=== PATIENT | female | born 1985 | race Caucasian/White ===

== ENCOUNTER 2025-03-12 11:45 | Emergency (ER) | payer OTHER, SELFPAY ==
--- NOTE | ~2025-03-12 | XR_ITS ---
Examination: XR chest 1V portable Clinical History: Shortness of breath Comparison: None Technique: Portable AP Findings: Heart size normal. Lungs clear. No acute bony abnormality. IMPRESSION: 1. No acute cardiopulmonary findings given portable technique. Reviewed, dictated and finalized at location [facility]
[2025-03-12 11:45] VITALS: BP 112/76; PULSE 108; PULSE 109; RESP 20; TEMP 37.2; O2SAT 99
--- NOTE | 2025-03-12 11:52 | ECG_ITS ---
Test Date: 2025-03-12 11:58:46 Measurements Intervals [place] Rate: 102 P: 82 WV: 111 QRS: 66 QRSD: 86 T: 75 QT: 351 QTc: 458 Interpretive Statements SINUS TACHYCARDIA WITH SHORT WV INTERVAL BORDERLINE T WAVE ABNORMALITY- HIGH LATERAL LEADS BASELINE ARTIFACT- I, II, AVR, AVL, AVF BORDERLINE ECG No previous ECG available for comparison Electronically Signed On 03-12-2025 12:08:44 LOCAL COMBINATION TRUCK DRIVER by Rich Gomez D.O.
[2025-03-12 12:00] VITALS: BP 105/76; PULSE 108; RESP 18; O2SAT 99
[2025-03-12] MEDS: SODIUM CHLORIDE 0.9% IV 1,000 ML 999 ML IV CONT (12:10)
[2025-03-12 12:15] VITALS: BP 107/77; PULSE 99; RESP 17; O2SAT 99
[2025-03-12 12:30] VITALS: BP 116/73; PULSE 99; RESP 16; O2SAT 99
[2025-03-12 12:36] LABS: Hematocrit 32.3 % (35.0-49.0); Hemoglobin 9.7 g/dL (12.0-15.0); Immature Granulocyte Percent A 0.5 % (0.0-0.0); Lymphocytes Absolute Auto 2.18 K/mm3 (1.10-4.50); Mean Corpuscular HGB Conc 30.0 g/dL (32-36); Mean Corpuscular Hemoglobin 21.1 pg (27.0-31.0); Mean Corpuscular Volume 70.4 fL (78.0-102.0); Nucleated Red Blood Cells Absolute Auto 0.00 K/mm3 (0.00-0.00); Nucleated Red Blood Cells Perc 0.0 % (0-0.0); Platelet Count Result 383 K/mm3 (150-420); Red Blood Count 4.59 M/mm3 (4.20-5.40); White Blood Count 11.3 K/mm3 (4.8-10.8)
[2025-03-12 12:45] VITALS: BP 110/71; PULSE 94; PULSE 95; RESP 16; O2SAT 100
[2025-03-12 12:48] LABS: Alanine Aminotransferase 16 U/L (6-35); Albumin Level 4.2 g/dL (3.5-5.1); Alkaline Phosphatase 90 U/L (38-126); Anion Gap 10 mmol/L (4-12); Aspartate Amino Transferase 26 U/L (14-36); Bilirubin,Total 0.6 mg/dL (0.2-1.3); Blood Urea Nitrogen 16 mg/dL (7-17); Calcium 8.8 mg/dL (8.4-10.2); Carbon Dioxide 20 mmol/L (22-30); Chloride 104 mmol/L (98-107); Estimated CRCL calculation 102 ml/min; Estimated Glomerular Filt Rate > 60; Glucose 249 mg/dL (65-110); Magnesium 1.7 mg/dL (1.6-2.3); Osmolality Calculated 287 mOsm/kg (285-295); Potassium 3.7 mmol/L (3.4-5.0); Sodium 134 mmol/L (137-145); Total Protein 7.3 g/dL (6.3-8.2)
[2025-03-12 12:51] LABS: INR 1.0; Partial Thromboplastin Time 24.1 Sec (23.9-30.70); Prothrombin Time 10.8 Seconds (9.50-12.1)
[2025-03-12 12:59] LABS: NT Pro B Type Natriuretic Pept < 20 pg/mL (19.9-100); Troponin I < 0.012 ng/mL (0.000-0.034)
[2025-03-12] MEDS: KETOROLAC 30 MG/ML VIAL (*BKC) IV PUSH (13:11)
[2025-03-12 13:13] LABS: Influenza A QL RT-PCR Negative (Negative); Influenza B QL RT-PCR Negative (Negative); RSV RNA, RT-PCR Negative (Negative); SARS-CoV-2 RNA PCR Positive (Negative)
[2025-03-12 13:15] VITALS: BP 119/77; PULSE 90; RESP 18; TEMP 36.6; O2SAT 99
--- NOTE | 2025-03-12 13:19 | ED_ITS ---
HPI - SOB/Dyspnea General Chief Complaint: Shortness of Breath/Dyspnea Stated Complaint: shortness of breath Time Seen by Provider: 03/12/25 11:51 Source: patient Mode of arrival: ambulatory Limitations: no limitations History of Present Illness HPI Narrative: This is a 40-year-old female with history of CAD presents with shortness of breath cough and congestion with no fevers no nausea vomiting no chest pain no abdominal pain no dysuria no diarrhea constipation. Patient had symptoms for the last couple of days where she has cough congestion and some mild shortness of breath with no audible wheezing. MD elicited complaint: shortness of breath and cough Onset (ago): day(s) Timing: constant Severity: mild Exacerbating factors: nothing Relieving factors: nothing Related Data Allergies Allergy/AdvReac Type Severity Reaction Status Date / Time No Known Allergies Allergy Verified 03/12/25 11:57 Review of Systems 2 Review of Systems: All systems reviewed & are unremarkable except as noted in HPI and below PMFSH Past Medical History Medical History CAD (coronary artery disease) Exam 2 Const: General: healthy appearing Nutritional Appearance: well nourished Orientation/consciousness: patient oriented x3 Limitations: no limitations HENMT: Head: normal to inspection Neck: Neck: normal visual inspection, no lymphadenopathy and no meningeal signs Chest: Chest palpation & inspection: normal inspection of the chest Resp: Effort & Inspection: normal respiratory effort Auscultation: clear to auscultation bilaterally Cardio: Rate: regular rate Rhythm: regular rhythm GI: GI Palp: Yes Soft to palpation Auscultation: normal bowel sounds Skin: General skin exam: normal color Rashes: no rashes Wounds: no wounds Neuro: General: patient oriented x3, moves all extremities and no meningeal signs Extrem: General: no pedal edema Course Course Emergency Course: Medical decision making narrative: The patient was evaluated by myself in the emergency department. History obtained from the patient who is an independent historian physical exam performed and witnessed by nurse. External medical records were reviewed at this time. EKG shows normal sinus rhythm with no ST or T changes x-ray with no acute cardiopulmonary abnormality blood work troponins and D-dimer were negative the patient was positive for COVID. Patient did receive 30mg IV Toradol and after reassessment pain level had improved she is complaining of some shoulder discomfort. Patient received IV fluids. Repeat assessment: Patient doing well on repeat exam with no acute distress Symptoms have improved since arrival to the emergency department Repeat vitals are stable Patient agrees with discussion after shared medical decision-making and agrees with discharge All questions answered to the patient's satisfaction Follow-up in 3 to 5 days with primary care physician. Vital Signs Vital signs: Vital Signs Temperature 37.2 C 03/12/25 11:45 Pulse Rate 108 H 03/12/25 11:45 Respiratory Rate 20 03/12/25 11:45 Blood Pressure 112/76 03/12/25 11:45 Pulse Oximetry 99 03/12/25 11:45 Oxygen Delivery Room Air 03/12/25 11:45 Temperature 37.2 C 03/12/25 11:45 Pulse Rate 94 03/12/25 12:45 Respiratory Rate 16 03/12/25 12:45 Blood Pressure 110/71 03/12/25 12:45 Pulse Oximetry 100 03/12/25 12:45 Oxygen Delivery Room Air 03/12/25 12:45 MDM Differential Diagnosis Differential Diagnosis: COVID Lab Data 03/12/25 12:29 03/12/25 12:29 Labs: Lab Results 03/12/25 03/12/25 Range/Units 12:29 12:30 WBC 11.3 H (4.8-10.8) K/mm3 RBC 4.59 (4.20-5.40) M/mm3 Hgb 9.7 L (12.0-15.0) g/dL Hct 32.3 L (35.0-49.0) % MCV 70.4 L (78.0-102.0) fL MCH 21.1 L (27.0-31.0) pg MCHC 30.0 L (32-36) g/dL RDW 16.7 H (11.6-14.4) % Plt Count 383 (150-420) K/mm3 MPV 10.6 (9.2-11.8) fl Immature Gran % (Auto) 0.5 H (0.0-0.0) % Neut % (Auto) 71.9 H (50.0-70.0) % Lymph % (Auto) 19.3 (18.0-42.0) % [place] % (Auto) 6.1 (2.0-11.0) % Eos % (Auto) 1.4 (1.0-6.0) % Baso % (Auto) 0.8 (0.0-1.0) % Lymph # (Auto) 2.18 (1.10-4.50) K/mm3 Tw[place]gs # (Auto) 0.69 (0.10-0.90) K/mm3 Eos # (Auto) 0.16 (0.02-0.50) K/mm3 Baso # (Auto) 0.09 (0.00-0.10) K/mm3 Abs Immat Gran (auto) 0.06 H (0.00-0.00) K/mm3 Absolute Neuts (auto) 8.11 H (1.70-7.20) K/mm3 Absolute Nucleated RBC 0.00 (0.00-0.00) K/mm3 Nucleated RBC % 0.0 (0-0.0) % PT 10.8 (9.50-12.1) Seconds INR 1.0 APTT 24.1 (23.9-30.70) Sec D-Dimer 0.28 (0.19-0.50) mg/L Sodium 134 L (137-145) mmol/L Potassium 3.7 (3.4-5.0) mmol/L Chloride 104 (98-107) mmol/L Carbon Dioxide 20 L (22-30) mmol/L Anion Gap 10 (4-12) mmol/L BUN 16 (7-17) mg/dL Creatinine 0.59 L (0.7-1.0) mg/dL Estim Creat Clear Calc 102 ml/min Estimated GFR > 60 (59 - ) Glucose 249 H (65-110) mg/dL Calculated Osmolality 287 (285-295) mOsm/kg Lactic Acid 1.0 (0.7-2.0) mmol/L Calcium 8.8 (8.4-10.2) mg/dL Magnesium 1.7 (1.6-2.3) mg/dL Total Bilirubin 0.6 (0.2-1.3) mg/dL AST 26 (14-36) U/L ALT 16 (6-35) U/L Alkaline Phosphatase 90 (38-126) U/L Troponin I < 0.012 (0.000-0.034) ng/mL NT-Pro-B Natriuret Pep < 20 (19.9-100) pg/mL Total Protein 7.3 (6.3-8.2) g/dL Albumin 4.2 (3.5-5.1) g/dL Influenza A (RT-PCR) Negative (Negative) Influenza B (RT-PCR) Negative (Negative) RSV (RT-PCR) Negative (Negative) SARS-CoV-2 RNA (RT-PCR) Positive A (Negative) Imaging Data Radiologist's impression: ITS Impressions Chest X-Ray 03/12/25 12:08 IMPRESSION: 1. No acute cardiopulmonary findings given portable technique. Critical Care Time Critical Care Time Critical Care Time: No Discharge Plan Discharge Clinical Impression: COVID Patient Disposition: Home Condition: Stable Instructions: Antibiotic Form, COVID-19 (Coronavirus Disease 2019) (ED) Additional Instructions: Advised to take medication as prescribed can use Tylenol or Motrin as needed and follow with primary in the next 3 to 5 days for further evaluation and treatment. Patient Language: [place] Prescriptions: New Paxlovid 300 mg (150 mg x 2)-100 mg tablets,dose pack See Rx Instructions .ROUTE .COMPLEX Qty: 30 0RF Rx Instructions: take TWO 150 mg tablets of nirmatrelvir with ONE 100 mg tablet of ritonavir twice daily for 5 days benzonatate 200 mg capsule 200 mg PO TID Qty: 20 0RF Follow-up/Referrals: Muriel,WARD Marvin [Primary Care Provider] Time of Disposition: 13:24
--- OUTSIDE RECORDS SUMMARY | 2025-03-12 13:53 | XMS_ITS ---
Author Organization Unknown Address [address] [place] [phone] Phone Care Team Providers Care Tax Economist Name Role Phone TORY WILEY Attending Unavailable NEWTON García Primary Unavailable Immunization Immunization Date Status Additional Notes Code Code System DTP 1983 Completed 01 CVX DTP 1983 Completed 01 CVX DTP 1983 Completed 01 CVX DTP 01/03/1985 Completed 01 CVX DTP 12/18/1988 Completed 01 CVX OPV, trivalent 1983 Completed 02 CVX OPV, trivalent 1983 Completed 02 CVX OPV, trivalent 1983 Completed 02 CVX OPV, trivalent 01/03/1985 Completed 02 CVX OPV, trivalent 12/18/1988 Completed 02 CVX MMR 05/23/1984 Completed 03 CVX MMR 12/18/1988 Completed 03 CVX Hep B, adolescent or pediatric 04/15/1999 Completed 08 CVX Hep B, adolescent or pediatric 05/13/1999 Completed 08 CVX Hep B, adolescent or pediatric 10/14/1999 Completed 08 CVX Td (adult), 2 Lf tetanus toxoid, preservative free, adsorbed 10/16/1997 Completed 09 CVX Hib, unspecified formulation 03/13/1986 Completed 17 CVX Tdap 05/26/2014 Completed 115 CVX Results TROPONIN LEVEL - Collect Mario Alberto e/Time: 01/28/2023 13:23 [facility] ID: [id number] [place], [place], [phone] LOINC: 62176-5 Test Value Unit Reference Range Code Code System Flag TROPONIN < 0.012 ng/mL L=0.000 H=0.033 42422-8 LOINC TEST URINE - Colle ct Date/Time: 01/28/2023 11:20 [facility] ID: [id number] [address] [place] [address], [phone] LOINC: Test Value Unit Reference Range Code Code System Flag URINE PREG NEGATIVE RESPIRATORY 4 PLEX COVID FLU RSV PCR - Collect Date/Time: 01/28/2023 10:13 [facility] ID: [id number] [address] [place] [address], [phone] LOINC: 37481-3 Test Value Unit Reference Range Code Code System Flag SARS CoV2 PCR NEGATIVE FLU A PCR NEGATIVE FLU B PCR NEGATIVE RSV PCR NEGATIVE SEND TO [facility]? YES A PRO BNP - Collect Date/Time: 01/28/2023 10:08 [facility] ID: [id number] [address] [place] [address], [phone] LOINC: 37406-8 Test Value Unit Reference Range Code Code System Flag Pro BNP2 475 pg/mL L=0 H=450 01004-4 LOINC H CBC W/ DIFF - Collect Date/T timothy: 01/28/2023 10:08 [facility] ID: [id number] [address] [place] [address], [phone] LOINC: 95875-8 Test Value Unit Reference Range Code Code System Flag WBC 9.5 10^3uL L=4.8 H=10.8 RBC 3.76 10^6uL L=4.20 H=5.40 L HEMOGLOBIN 9.9 g/dL L=12.0 H=16.0 718-7 LOINC L HEMATOCRIT 31.8 VOL% L=37.0 H=47.0 4544-3 LOINC L MCV 84.6 fL L=81.0 H=99.0 MCH 26.3 pg L=27.0 H=32.0 L MCHC 31.1 g/dL L=32.0 H=36.0 L PLATELETS 317 10^3uL L=100 H=400 22899-7 LOINC RDW 14.6 % L=11.7 H=15.5 %GRAN 70.9 % L=40.0 H=70.0 38902-4 LOINC H %LYMPH 19.2 % L=20.0 H=45.0 736-9 LOINC L %MONO 7.0 % L=2.0 H=10.0 75660-1 LOINC %EOS 1.9 % L=0.0 H=6.0 713-8 LOINC %BASO 0.6 % L=0.0 H=3.0 706-2 LOINC #NEUT 6.7 10^3uL L=1.9 H=7.6 19789-1 LOINC #LYMPH 1.8 10^3uL L=0.9 H=4.9 34434-1 LOINC #MONO 0.7 10^3uL L=0.1 H=0.9 61050-1 LOINC #EOS 0.2 10^3uL L=0.0 H=0.6 712-0 LOINC #BASO 0.06 10^3uL L=0.00 H=0.10 49658-8 LOINC #IM GRANS 0.0 10^3uL L=0.0 H=7.0 55831-6 LOINC %IM GRANS 0.4 % L=0.0 H=5.0 53769-8 LOINC %NRB 0.0 L=0.0 H=0.2 26365-6 LOINC #NRB 0.000 L=0.000 H=0.012 32315-5 LOINC MANUAL DIFF NOT INDICATED RBC MORPH NOT INDICATED PTT - Collect Date/Time: 11/2022 10:08 [facility] ID: [id number] [address] [place], [place], [phone] LOINC: 86896-2 Test Value Unit Reference Range Code Code System Flag PTT 22.6 Sec L=23.0 H=29.4 L TROPONIN LEVEL - Collect Mario Alberto e/Time: 01/28/2023 10:08 [facility] ID: [id number] [address] [place] [address], [phone] LOINC: 21511-1 Test Value Unit Reference Range Code Code System Flag TROPONIN < 0.012 ng/mL L=0.000 H=0.033 84214-0 LOINC PROTIME - Collect Date/Time: 01/28/2023 10:08 [facility] ID: [id number] [address] [place] [address], [phone] LOINC: 89566-5 Test Value Unit Reference Range Code Code System Flag PT 10.4 Sec L=9.1 H=11.5 15582-3 LOINC INR 1.0 Sec L=0.9 H=1.1 84595-7 LOINC COMPREHENSIVE METABOLIC PANE L - Collect Date/Time: 01/28/2023 10:08 [facility] ID: [id number] [address] [place] [address], [phone] LOINC: 19060-2 Test Value Unit Reference Range Code Code System Flag FASTING UNKNOWN BUN 10 mg/dL L=7 H=20 3094-0 LOINC CREATININE 0.60 mg/dL L=0.52 H=1.04 2160-0 LOINC GLUCOSE 141 mg/dL L=74 H=106 2345-7 LOINC H SODIUM 139 mmol/L L=132 H=144 2951-2 LOINC POTASSIUM 4.0 mmol/L L=3.5 H=5.1 2823-3 LOINC CHLORIDE 103 mmol/L L=98 H=107 2075-0 LOINC CO2 29.0 mmol/L L=22.0 H=30.0 2027-9 LOINC ANION GAP 11 L=10 H=20 15123-9 LOINC OSMOLALITY 289 mOs/kG L=280 H=296 52182-4 LOINC BUN/CREAT 16.7 3097-3 LOINC CALCIUM 8.6 mg/dL L=8.3 H=10.5 37648-7 LOINC AST 19 U/L L=15 H=46 1920-8 LOINC ALT 20 U/L L=9 H=72 1742-6 LOINC ALKALINE PHOS 74 U/L L=38 H=126 6768-6 LOINC TOTAL BILI 0.3 mg/dL L=0.2 H=1.3 1975-2 LOINC ALBUMIN 3.9 G/dL L=3.5 H=5.0 1751-7 LOINC TOTAL PROTEIN 7.0 g/L L=6.3 H=8.2 2885-2 LOINC A/G RATIO 1.3 13281-0 LOINC AGE 37 97485-6 LOINC eGFR NON-AFR 118 ml/min eGFR AFR AMER 143 ml/min D DIMER - Collect Date/Time: 01/28/2023 10:08 [facility] ID: [id number] [address] [place], [place], [phone] LOINC: Test Value Unit Reference Range Code Code System Flag DDIMER 0.31 mg/L FEU L=0.00 H=0.50 CHEST 1V - Completed: 2022 10:29 LOINC: EXAM DESCRIPTION: CHEST 1V REASON FOR STUDY: SOB today hx of heart attack chest and shoulder blade pain Duration: today TECHNIQUE: AP portable radiographic view(s) of the chest. COMPARISON: 01/05/2022 and 03/28/2020 FINDINGS: LUNGS: There is interstitial prominence within the lungs on today's examination with some patchy airspace opacities in both lung bases. No large effusion or pneumothorax. HEART/MEDIASTINUM: Cardiac silhouette is enlarged and there is pulmonary vascular enlargement. LINES/TUBES: None. BONES: Degenerative changes. No acute process IMPRESSION: Cardiomegaly with pulmonary vascular enlargement. Diffuse interstitial markings may represent underlying edema. Consider superimposed infection/pneumonia in the appropriate clinical setting. Follow-up recommended THIS IS AN ELECTRONICALLY VERIFIED FINAL REPORT 01/28/2023 10:39 AM - Electronically signed by Ami Mccabe M.D. TW: JAYDON Report ID: [id number] Reading Location: [id number] Social History Type Status Start Date End Date Code Code Syst em Smoking History Current every day smoker 589878521 SNOMED CT Smoking History Never smoker (Never Smoked) 348155316 SNOMED CT Sex Female Medications Medication Start Date End Date Route Frequency Dose Code Code System Medication Instructions Home Meds DAPTOmycin 500MG Intravenous Powder for Solution 03/24/2022 Unknown IVPB EVERY 24 HOURS 500 MILLIGRAMS 509052 RxNorm 500 MILLIGRAMS IVPB EVERY 24 HOURS Ferrous Sulfate 325 MG Oral Tablet, Enteric Coated 03/24/2022 Unknown ORAL TWICE A DAY 325 MILLIGRAMS 427896 RxNorm TAKE 325 MILLIGRAMS ORAL TWICE A DAY [employer] Nicotine Transdermal System 14MG/24HR Transdermal Patch, Extended Release 03/24/2022 Unknown TRANSDE RMAL 1200 14 MILLIGRAMS 109759 RxNorm APPLY TO 14 MILLIGRAMS TRANSDERMAL 1200 levoFLOXacin in 5% Dextrose 5%-500MG/100ML Intravenous Solution 03/24/2022 Unknown IVPB EVERY 24 HOURS 500 MILLIGRAMS 1892573 RxNorm 500 MILLIGRAMS IVPB EVERY 24 HOURS Aspirin 81MG Oral Tablet, Enteric Coated 03/24/2022 Unknown ORAL ONCE A DAY 81 MILLIGRAMS 989328 RxNorm TAKE 81 MILLIGRAMS ORAL ONCE A DAY Atorvastatin Calcium 80MG Oral Tablet 03/24/2022 Unknown ORAL ONCE A DAY 80 MILLIGRAMS 307815 RxNorm TAKE 80 MILLIGRAMS ORAL ONCE A DAY Carvedilol 12.5MG Oral Tablet 03/24/2022 Unknown ORAL TWICE A DAY 12.5 MILLIGRAMS 631891 RxNorm TAKE 12.5 MILLIGRAMS ORAL TWICE A DAY Clopidogrel 75MG Oral Tablet 03/24/2022 Unknown BY MOUTH 1 TABLET 956575 RxNorm TAKE 1 TABLET BY MOUTH - WAIT UNTIL PCP allows to restart! FLUoxetine 40MG Oral Capsule 03/24/2022 Unknown ORAL ONCE A DAY 40 MILLIGRAMS 032024 RxNorm TAKE 40 MILLIGRAMS ORAL ONCE A DAY HumaLOG KwikPen 100U/1ML Subcutaneous Solution 03/24/2022 Unknown SUBCUTA NEOUS BEFORE MEALS AND AT BEDTIME 1 unit(s) 7588714 RxNorm INJECT INTO 1 EACH SUBCUTANEOUS BEFORE MEALS AND AT BEDTIME Lantus SoloStar Pen 100U/1ML Subcutaneous Solution 03/24/2022 Unknown SUBCUTA NEOUS TWICE A DAY 17 unit(s) 511557 RxNorm INJECT INTO 17 EACH SUBCUTANEOUS TWICE A DAY Nitroglycerin 0.4MG Sublingual Tablet 03/24/2022 Unknown SUBLING UAL PRN Q5MIN 0.[address] 0.4 MILLIGRAMS SUBLINGUAL PRN Q5MIN HYDROcodone bitartrate-felipa taminophen 5MG-325MG Oral Tablet 03/24/2022 Unknown BY MOUTH NEEDED EVERY 6 HOURS 1 TABLET 238972 RxNorm TAKE 1 TABLET BY MOUTH NEEDED EVERY 6 HOURS Assessment You had the following problems:PYELONEPHRITIS Hospital Discharge Instructions Should you have any questions prior to discharge, please contact a member of your healthcare team. If you have left the hospital and have any questions, please contact your primary care physician. Reason For Referral No Data Found Problems Problem Start Date Resolved Date Status Code Code System PYELONEPHRITIS active 97629969 SNOME D-CT Allergies and Adverse Reactions Allergy Substance Reaction Severity Start Date Concern Status Co de Code System TRAMADOL Rash (SNOMED-CT: 190307242) Active 00221 RxNorm Plan of Treatment No Data Found Encounters Encounter Diagnosis Start Date Code Code Sys tem Acute bronchitis, unspecified 01/28/2023 SNOMED-CT Personal Care Team Section Performer Name Performer Role Active Date Inactive ALICIA Oropeza PCP - Primary care physician 2023-01-28 Imaging Narrative Notes
--- OUTSIDE RECORDS SUMMARY | 2025-03-12 13:53 | XMS_ITS ---
Author Organization Unknown Address [address] [place] [phone] Phone Care Team Providers Care Bench Molder Apprentice Name Role Phone EZEQUIEL ROSALES Attending Unavailable NEWTON García Primary Unavailable Immunization [...] CVX Tdap 05/26/2014 Completed 115 CVX Results RIBS LEFT - Completed: 02/26 10:35 LOINC: EXAM DESCRIPTION: RIBS LEFT REASON FOR STUDY: fell 2 days ago left mid/lower rib pain sob (due to pain) Duration: 2 days TECHNIQUE: 2 radiographic views of the left ribs. COMPARISON: 01/28/2023 FINDINGS: RIBS: No acute displaced fracture or osseous abnormalities. VISUALIZED LUNGS: No focal opacity, pleural effusion, or pneumothorax. IMPRESSION: No rib fractures are identified. THIS IS AN ELECTRONICALLY VERIFIED FINAL REPORT 02/26/2023 10:49 AM - Electronically signed by Hira Franz M.D. KR: ADRIANA Report ID: [id number] Reading Location: [place] [address] Social History Type Status Start Date End Date Code Code Syst em Smoking History Current every day smoker 864771702 SNOMED CT Smoking History Never smoker (Never Smoked) 695175173 SNOMED CT Sex Female Medications Medication Start Date End Date Route Frequency Dose Code Code System Medication Instructions Home Meds DAPTOmycin 500MG Intravenous Powder for Solution 03/24/2022 Unknown IVPB EVERY 24 HOURS 500 MILLIGRAMS 726005 RxNorm 500 MILLIGRAMS IVPB EVERY 24 HOURS Ferrous Sulfate 325 MG Oral Tablet, Enteric Coated 03/24/2022 Unknown ORAL TWICE A DAY 325 MILLIGRAMS 907647 RxNorm TAKE 325 MILLIGRAMS ORAL TWICE A DAY [employer] Nicotine Transdermal System 14MG/24HR Transdermal Patch, Extended Release 03/24/2022 Unknown TRANSDE RMAL 1200 14 MILLIGRAMS 540084 RxNorm APPLY TO 14 MILLIGRAMS TRANSDERMAL 1200 levoFLOXacin in 5% Dextrose 5%-500MG/100ML Intravenous Solution 03/24/2022 Unknown IVPB EVERY 24 HOURS 500 MILLIGRAMS 5311915 RxNorm 500 MILLIGRAMS IVPB EVERY 24 HOURS Aspirin 81MG Oral Tablet, Enteric Coated 03/24/2022 Unknown ORAL ONCE A DAY 81 MILLIGRAMS 932441 RxNorm TAKE 81 MILLIGRAMS ORAL ONCE A DAY Atorvastatin Calcium 80MG Oral Tablet 03/24/2022 Unknown ORAL ONCE A DAY 80 MILLIGRAMS 022239 RxNorm TAKE 80 MILLIGRAMS ORAL ONCE A DAY Carvedilol 12.5MG Oral Tablet 03/24/2022 Unknown ORAL TWICE A DAY 12.5 MILLIGRAMS 448681 RxNorm TAKE 12.5 MILLIGRAMS ORAL TWICE A DAY Clopidogrel 75MG Oral Tablet 03/24/2022 Unknown BY MOUTH 1 TABLET 919065 RxNorm TAKE 1 TABLET BY MOUTH - WAIT UNTIL PCP allows to restart! FLUoxetine 40MG Oral Capsule 03/24/2022 Unknown ORAL ONCE A DAY 40 MILLIGRAMS 423941 RxNorm TAKE 40 MILLIGRAMS ORAL ONCE A DAY HumaLOG KwikPen 100U/1ML Subcutaneous Solution 03/24/2022 Unknown SUBCUTA NEOUS BEFORE MEALS AND AT BEDTIME 1 unit(s) 9448217 RxNorm INJECT INTO 1 EACH SUBCUTANEOUS BEFORE MEALS AND AT BEDTIME Lantus SoloStar Pen 100U/1ML Subcutaneous Solution 03/24/2022 Unknown SUBCUTA NEOUS TWICE A DAY 17 unit(s) 925434 RxNorm INJECT INTO 17 EACH SUBCUTANEOUS TWICE A DAY Nitroglycerin 0.4MG Sublingual Tablet 03/24/2022 Unknown SUBLING UAL PRN Q5MIN 0.[address] 0.4 MILLIGRAMS SUBLINGUAL PRN Q5MIN HYDROcodone bitartrate-felipa taminophen 5MG-325MG Oral Tablet 03/24/2022 Unknown BY MOUTH NEEDED EVERY 6 HOURS 1 TABLET 791667 RxNorm TAKE 1 TABLET BY MOUTH NEEDED [...] Date Status Code Code System PYELONEPHRITIS active 42105532 SNOME D-CT Allergies and Adverse Reactions Allergy Substance Reaction Severity Start Date Concern Status Co de Code System TRAMADOL Rash (SNOMED-CT: 678394246) Active 81424 RxNorm Plan of Treatment No Data Found Encounters Encounter Diagnosis Start Date Code Code Sys tem Strain of muscle and tendon of back wall of thorax, initial encounter 02/26/2023 SNOMED-CT Personal Care Team Section Performer Name Performer Role Active Date Inactive ALICIA Oropeza PCP - Primary care physician 2023-01-28 Imaging Narrative Notes
--- OUTSIDE RECORDS SUMMARY | 2025-03-12 13:53 | XMS_ITS | Clinical Summary ---
Author Organization [facility] Address [address] [place] [address] Care Team Providers Care Commander Internal Affairs Name Role Phone Jennifer Gordon MD, Bruce Frank MD Primary Care Provider [phone] Allergies No known active allergies Medications atorvastatin 80 MG tablet Take 1 tablet (80 mg total) by mouth nightly at bedtime. 30 tablet 3 02/11/2020 Active nitroglycerin 0.[address] 1 tablet (0.4 mg total) under the tongue every 5 (five) minutes as needed for Chest Pain. 90 tablet 3 02/11/2020 Active carvedilol 12.5 MG tablet Take 1 tablet (12.5 mg total) by mouth 2 (two) times daily. 180 tablet 3 02/22/2020 Active aspirin 81 MG chewable tablet Chew 1 tablet (81 mg total) by mouth daily. 90 tablet 3 02/23/2020 Active metFORMIN ER 500 MG 24 hr tablet Take 1 tablet (500 mg total) by mouth daily with breakfast. 05/10/2020 Active insulin lispro, 1 Unit Dial, 100 UNIT/ML injection (PEN)Indication s:sliding scale, usually 7-10 units Inject into the skin 4 (four) times daily before meals and nightly. Indications: sliding scale, usually 7-10 units Active clopidogrel 75 MG tablet Take 1 tablet (75 mg total) by mouth daily. Active gabapentin (NEURONTIN) 300 MG capsule Take 1 capsule (300 mg total) by mouth 3 (three) times daily. Active FLUoxetine (PROZAC) 20 MG tablet Take 2 tablets (40 mg total) by mouth nightly. Active LANTUS 100 UNIT/ML injection (VIAL) 19 Units nightly at bedtime. 10/02/2023 Active losartan (COZAAR) 25 MG tablet Take 1 tablet (25 mg total) by mouth daily. 05/06/2024 Active albuterol sulfate HFA 108 (90 Base) MCG/ACT inhaler Inhale 1 puff into the lungs every 6 (six) hours as needed. 05/17/2024 Active Active Problems Problem Noted Date Diagnosed Date CHF (congestive heart failure) 01/25/2021 Unstable angina 06/09/2020 Type 2 diabetes mellitus wit h circulatory disorder, with long-term current use of insulin 02/22/2020 Coronary artery disease invo lving [place] coronary artery of [place] heart without angina pectoris 02/19/2020 Aortic valve regurgitation 02/19/2020 NSTEMI (non-ST elevated myocardial infarction) 1 04/10/2019 Resolved Problems Problem Noted Date Diagnosed Date Resolved Date Elevated troponin 02/09/2020 02/22/2020 Family History Medical History Relation Comments Liver Cancer Father Stroke Maternal Grandmother Aneurysm Mother Relation Status Comments Father (Age 42) Maternal Grandmother Mother (Age 40) Social History Tobacco Use Types Packs/Day Years Used Date Smoking Tobacco: Every Day Cigarettes Smokeless Tobacco: Never Tobacco Cessation:Ready to Q uit: Not Asked; Counseling Given: Not Answered Alcohol Use Standard Drinks/Week Comments Yes 0 (1 standard drink = 0.6 oz pur e alcohol) occasional B1300 Health Literacy Answer Date Recor ded How often do you need to hav e someone help you when you read instructions, pamphlets, or other written material from your doctor or pharmacy? Never 12/06/2023 [facility] Utilities Answer Date Recorded In the past 12 months has [facility] [employer], [employer], or water [employer] threatened to shut off services in your home? No 12/06/2023 Humiliation, Afraid, Rape, and Kick questionnair e Answer Date Recorded Within the last year, have y ou been afraid of your partner or ex-partner? No 12/06/2023 Within the last year, have y ou been humiliated or emotionally abused in other ways by your partner or ex-partner? No Within the last year, have y ou been kicked, hit, slapped, or otherwise physically hurt by your partner or ex-partner? No 12/06/2023 Within the last year, have y ou been raped or forced to have any kind of sexual activity by your partner or ex-partner? No 12/06/2023 Social Connection and Isolation Panel Answer Date Recorded In a typical week, how many times do you talk on the phone with family, friends, or neighbors? More than three times a week 12/06/2023 How often do you get togethe r with friends or relatives? Twice a week 12/06/2023 How often do you attend chur or worship services? Never 12/06/2023 Do you belong to any clubs o r organizations such as mu-ism groups, unions, fraternal or athletic groups, or school groups? No 12/06/2023 How often do you attend meet ings of the clubs or organizations you belong to? Never 12/06/2023 Are you , , di vorced, , never , or living with a partner? Living with partner 12/06/2023 AUDIT-C Answer Date Recorded Q1: How often do you have a drink containing alc ohol? 2-3 times a week 12/06/2023 Q2: How many drinks containi ng alcohol do you have on a typical day when you are drinking? 3 or 4 12/06/2023 Q3: How often do you have si x or more drinks on one occasion? Monthly 12/06/2023 Overall Financial Resource Strain (CARDIA) Answe r Date Recorded How hard is it for you to pa y for the very basics like food, housing, medical care, and heating? Not hard at all 12/06/2023 [facility] Occupational Stress Questionnaire Answer Date Recorded Do you feel stress - tense, restless, nervous, or anxious, or unable to sleep at night because your mind is troubled all the time - these days? To some extent 12/06/2023 Exercise Vital Sign Answer Date Recorde d On average, how many days pe r week do you engage in moderate to strenuous exercise (like a brisk walk)? 5 days 12/06/2023 On average, how many minutes do you engage in exercise at this level? 60 min 12/06/2023 Hunger Vital Sign Answer Date Recorded Within the past 12 months, y ou worried that your food would run out before you got the money to buy more. Never true 12/06/19 24 Within the past 12 months, t he food you bought just didn't last and you didn't have money to get more. Never true 12/06/2023 PRAPARE - Transportation Answer Date Re corded In the past 12 months, has l ack of transportation kept you from medical appointments or from getting medications? Yes 11/20 In the past 12 months, has l ack of transportation kept you from meetings, work, or from getting things needed for daily living? Yes 12/06/2023 Housing Stability Vital Sign Answer Mario Alberto e Recorded In the last 12 months, was t here a time when you were not able to pay the mortgage or rent on time? No 12/06/2023 In the past 12 months, how m any times have you moved where you were living? 2 12/06/2023 At any time in the past 12 m [facility], were you homeless or living in a jail (including now)? No 12/06/2023 Comments No Sex and Gender Information Value Date Recorded Sex Assigned at Female 12/06/2023 7:53 AM CDT Legal Sex Female 9:48 PM CDT Gender Identity Female 12/06/2023 7:53 AM CDT Sexual Orientation Straight 12/06/2023 7: 53 AM CDT Last Filed Vital Signs Vital Sign Reading Time Taken Comments Blood Pressure 116/71 12/08/2024 6:30 PM CDT Pulse 88 12/08/2024 6:20 PM CDT Temperature 36.7 C (98.1 F) 12/08/2024 6:20 PM CDT Respiratory Rate 18 12/08/2024 6:20 PM CDT Oxygen Saturation 99% 12/08/2024 6:30 PM CDT Inhaled Oxygen Concentration - - Weight 73.5 kg (162 lb) 12/08/2024 6:20 PM CDT Height 160 cm (5' 3) 12/08/2024 6:20 PM CDT Body Mass Index 28.7 12/08/2024 6:20 PM CDT Plan of Treatment Health Maintenance Due Date Last Done Comments ASCVD Statin 1983 Kidney Health Evaluation 1983 Annual Physical 1986 Diabetes: Retinopathy Eye Exam 2001 Hepatitis C 2001 DTaP, Tdap and Td Vaccines (1 - Tdap) 2002 12/18/1988, 01/03/1985, 1983, Additional history exists Hepatitis B Vaccines (1 of 3 - 19+ 3-dose series) 2002 Pneumococcal Vaccine: Pediatrics (0 to 5 Years) and At-Risk Patients (6 to 49 Years) (1 of 2 - PCV) 2002 HPV Vaccines (1 - 3-dose SCDM series) 2010 Cervical Cancer Screening Pap with HPV Testing (Age 30 to 64) Every 5 Years 2013 Hemoglobin A1C 12/10/2020 06/09/2020, 02/10/2020 ASCVD LDL 02/09/2021 02/10/2020 Lipid Panel 02/09/2021 02/10/2020 Mammogram Screening 2023 Cervical Cancer Screening Pap Smear (Age 30 to 64) Every 3 Years 06/11/2023 06/10/2020 Cervical Cancer Screening with HPV 06/11/2023 COVID-19 Vaccine ( season) 2024 Influenza Adult (#1) 2024 Hepatitis A Vaccines Aged Out No long er eligible based on patient's age to complete this topic Meningococcal B Vaccine Aged Out No l onger eligible based on patient's age to complete this topic Meningococcal Vaccine Aged Out No stanton antonio eligible based on patient's age to complete this topic RSV Immunizations Under 20 Months Aged Out No longer eligible based on patient's age to complete this topic Medical Devices Implanted Type Area Telephonic Nurse Case Manager Device Identifier Shelf Expiration Date Model / Serial / Lot Cv Resolute Lead Brian-Lad-02/08 Implanted: by Carlo Lambert MD (Quantity not on file) Stent Coronary LAD [employer] CORONARY AND STRUCTURAL HEART - DIV MEDT 04/04/2021 [id number] UX / / [id number] Procedures Procedure Name Priority Date/Time Associated Diagnosis Comments CYTOPATH CERV/VAG THIN LAYER Routine 06/10/2020 12:39 PM CDT HEMOGLOBIN, GLYCOSYLATED Routine 06/09/2020 3:33 AM CDT LIPID PANEL Routine 02/10/2020 9:50 AM PAIRING MACHINE OPERATOR from Last 3 Months or Most Recently Relevant to Health Maintenance Results * Cytopath Cerv/Vag Thin Layer (06/10/2020 12:39 PM CDT) THIN PREP PAP [facility] [address] [place] [address] Department of Pathology Pathology Report CERVICAL/VAGINAL PAP SMEAR REPORT Name: JESSIKA MORENO Age: 12 1985 (Age: 35) Location: [address] Sex: F Collected Date: 06/10/2020 [facility] #: [id number] Date Received: 06/12/2020 Date Reported: 06/14/2020 Provider: KAMERON MCDONOUGH MD INTERPRETATION CERVICAL/ENDOCERVI AARON: SATISFACTORY FOR EVALUATION. ENDOCERVICAL/TRANS FORMATION ZONE COMPONENT PRESENT. NEGATIVE FOR INTRAEPITHELIAL LESION OR MALIGNANCY. Electronically Signed Out By TUTU Hercules (ASCP) CLINICAL HISTORY SCREENING CONTRACEPTIVE - (BTL) CANCER HISTORY - NO PERTINENT HISTORY - NONE ThinPrep Pap Test Only Date of Last Menstrual Period: 05/21/2020 Menstrual Status: Abnormal Bleeding SPECIMEN SUBMITTED CERVICAL/ENDOCERVI AARON Specimen Received:1 Thin Prep Vial, Image Assisted Pap (SMD) Please note: The Pap smear is not a diagnostic test. It is a screening test. Negative results on combined screening (Pap test and HPV-DNA) have a high negative predictive value (99.1-100 percent) for cervical cancer. The pap test is not effective in detecting cervical adenocarcinoma. [facility] 06/10/2020 12:3 9 PM CDT 06/12/2020 12:39 PM CDT Comment:CERVICAL/ENDOCERVICA L us Kameron Mcdonough MD PATHOLOGY/CYTOLOGY ORDERABLES Final Result [facility] [address] [place] [address], [place] [phone] [id number] [facility] [address] [place] [address], [place] [phone] * (ABNORMAL) HEMOGLOBIN, GLYCOSYLATED (06/09/2020 3:33 AM CDT) HGB A1C 8.8(H) <5.7 % 06/09/2020 5:19 AM CDT [facility] ESTIMATED AVG GLUCOSE 206(H) 74 - 114 MG/DL 06/09/2020 5:19 AM CDT [facility] 06/09/2020 3:33 AM CDT Andrea Rich MD LABORATORY Final Result [facility] [address] [place] [address], [place] [phone] [id number] * (ABNORMAL) LIPID PANEL (02/10/2020 9:50 AM PAIRING MACHINE OPERATOR) CHOLESTEROL 184 MG/DL 02/10/2020 10:41 AM [facility] Comment:DESIRABLE: <200 TRIGLYCERIDES 133 MG/DL 02/10/2020 10:41 AM [facility] Comment:<150 NORMAL HDL 38(L) >49 MG/DL 02/10/2020 10:41 AM [facility] LDL (CALCULATED) 119 MG/DL 02/10/20 10:41 AM [facility] Comment:100-129 NEAR OR ABOV E OPTIMAL VLDL CALCULATION 27 MG/DL 02/10/20 10:41 AM [facility] Comment:REFERENCE RANGE NOT ESTABLISHED CHOL/HDL RATIO 4.8 02/10/2020 10:41 AM [facility] Comment:REFERENCE RANGE NOT ESTABLISHED LDL/HDL 3.1 02/10/2020 10:41 AM [facility] Comment:REFERENCE RANGE NOT ESTABLISHED NON HDL CHOLESTEROL 146 MG/DL 02/10/2020 10:41 AM PAIRING MACHINE OPERATOR [facility] Comment:REFERENCE RANGE NOT ESTABLISHED 02/10/2020 9:50 AM PAIRING MACHINE OPERATOR Carlo Lambert MD LABORATORY Final Result [facility] [address] [place] [address], [id number] from Last 3 Months or Most Recently Relevant to Health Maintenance Insurance [employer] Advance Directives * Full Code (Latest Code Status on File) Date Activated Date Inactivated Comments 12/06/2023 7:40 AM 12/07/2023 12:58 PM * Full Code Date Activated Date Inactivated Comments 06/09/2020 3:08 AM 06/10/2020 7:34 PM * Full Code Date Activated Date Inactivated Comments 02/10/2020 12:01 AM 02/12/2020 4:12 PM * Full Code Date Activated Date Inactivated Comments 02/09/2020 4:56 PM 02/10/2020 12:01 AM Care Teams Commander Internal Affairs Relationship Specialty Start Date End Date Freddy Gray MD [address] [place] [phone] PCP - General FAMILY PRACTICE 01/25/21 Jennifer Gordon MD Consulting Physician CARDIOVASCULAR DISEASE 02/19/20
--- OUTSIDE RECORDS SUMMARY | 2025-03-12 13:54 | XMS_ITS | Encounter Summary ---
Author Organization [facility] Address [address] [place] [address] Care Team Providers Care Fast Food Server Name Role Phone Austin Cerna MD Primary Care Provider [phone] [facility] Freddy Irving MD Primary Care Provider [phone] Encounter Details Date Type Department Care Team (Late st Contact Info) Description 06/12/2020 Hospital Follow-up Call [facility] Unit [address] [place] [address] Myah Montero, RN Social History Tobacco Use Types Packs/Day Years Used Date Smoking Tobacco: Heavy Smoker Cigarettes Smokeless Tobacco: Never Humiliation, Afraid, Rape, and Kick questionnair e Answer Date Recorded Within the last year, have y ou been afraid of your partner or ex-partner? No 06/09/2020 Within the last year, have y ou been humiliated or emotionally abused in other ways by your partner or ex-partner? No Within the last year, have y ou been kicked, hit, slapped, or otherwise physically hurt by your partner or ex-partner? No 06/09/2020 Within the last year, have y ou been raped or forced to have any kind of sexual activity by your partner or ex-partner? No 06/09/2020 Social Connection and Isolation Panel Answer Date Recorded In a typical week, how many times do you talk on the phone with family, friends, or neighbors? More than three times a week 06/09/2020 How often do you get togethe r with friends or relatives? Three times a week 06/09/2020 How often do you attend chur ch or buddhist services? Never 06/09/2020 Do you belong to any clubs o r organizations such as uatsdin groups, unions, fraternal or athletic groups, or school groups? No 06/09/2020 How often do you attend meet ings of the clubs or organizations you belong to? Never 06/09/2020 Are you , , di vorced, , never , or living with a partner? 06/09/2020 Overall Financial Resource Strain (CARDIA) Answe r Date Recorded How hard is it for you to pa y for the very basics like food, housing, medical care, and heating? Not hard at all 06/09/2020 [facility] [place] of Occupat ional Health - Occupational Stress Questionnaire Answer Date Recorded Do you feel stress - tense, restless, nervous, or anxious, or unable to sleep at night because your mind is troubled all the time - these days? To some extent 06/09/2020 Exercise Vital Sign Answer Date Recorde d On average, how many days pe r week do you engage in moderate to strenuous exercise (like a brisk walk)? 6 days 06/09/2020 On average, how many minutes do you engage in exercise at this level? 150+ min 06/09/2020 Hunger Vital Sign Answer Date Recorded Within the past 12 months, y ou worried that your food would run out before you got the money to buy more. Never true 06/10/19 21 Within the past 12 months, t he food you bought just didn't last and you didn't have money to get more. Never true 06/09/2020 PRAPARE - Transportation Answer Date Re corded In the past 12 months, has l ack of transportation kept you from medical appointments or from getting medications? No 05/21 In the past 12 months, has l ack of transportation kept you from meetings, work, or from getting things needed for daily living? No 06/09/2020 Comments No Sex and Gender Information Value Date Recorded Sex Assigned at Female 12/06/2023 7:53 AM CDT Legal Sex Female 9:48 PM CDT Gender Identity Female 12/06/2023 7:53 AM CDT Sexual Orientation Straight 12/06/2023 7: 53 AM CDT COVID-19 Exposure Response Date Recorded In the last month, have you been in contact with someone who was confirmed or suspected to have Coronavirus / COVID-19? No / Unsure 06/09/2020 3:23 AM CDT documented as of this encounter Functional Status * RETIRED Are you deaf or do you have serious difficulty hearing Answer Date of Assessment Author Status No 06/09/2020 3:38 AM CDT Activ e * RETIRED Are you blind or do you have serious difficulty seeing, even when wearing glasses? Answer Date of Assessment Author Status No 06/09/2020 3:38 AM CDT Activ e * Do you have serious difficulty walking or climbing stairs? Answer Date of Assessment Author Status No 06/09/2020 3:38 AM CDT Clair Acharya RN Active * Do you have difficulty dressing or bathing? Answer Date of Assessment Author Status No 06/09/2020 3:38 AM CDT Clair Acharya RN Active * Because of a physical, mental, or emotional condition, do you have difficulty doing errands alone such as visiting a doctor's office or shopping? Answer Date of Assessment Author Status No 06/09/2020 3:38 AM CDT Clair Acharya RN Active documented as of this encounter Mental Status * Because of a physical, mental, or emotional condition, do you have serious difficulty concentrating, remembering, or making decisions? Answer Entry Date Author Status No 06/09/2020 3:38 AM CDT Clair Acharya RN Active documented in this encounter Plan of Treatment Not on file documented as of this encounter Visit Diagnoses Not on filedocumented in this encounter Additional Health Concerns Infection Onset Date Last Indicated Resolved Time COVID-19 Rule Out 10/26/2020 10/26/2020 10/26/2020 4:38 PM CDT COVID-19 Rule Out 12/06/2023 12/06/2023 12/06/2023 5:32 AM CDT Respiratory Rule Out 05/18/2024 05/18/2024 025 12:38 PM DIETARY AIDE TEACHER COVID-19 Rule Out 05/18/2024 05/18/2024 05/18/2024 12:38 PM DIETARY AIDE TEACHER Influenza - Seasonal 05/18/2024 05/18/2024 025 12:32 AM DIETARY AIDE TEACHER COVID-19 Rule Out 05/23/2024 05/23/2024 05/23/2024 6:27 PM DIETARY AIDE TEACHER documented as of this encounter Care Teams Fast Food Server Relationship Specialty Start Date End Date Austin Cerna MD PCP - General FAMILY PRACTICE 02/13/20 01/24/21 Freddy Gray MD [address] [place] [phone] PCP - General FAMILY PRACTICE 01/25/21 Jennifer Gordon MD Consulting Physician CARDIOVASCULAR DISEASE 02/19/20 documented as of this encounter
--- OUTSIDE RECORDS SUMMARY | 2025-03-12 13:54 | XMS_ITS ---
Author Organization Unknown Address [address] [place] [phone] Phone Care Team Providers Care Consumer Loan Manager Name Role Phone TORY WILEY Attending Unavailable [...] CVX Tdap 05/26/2014 Completed 115 CVX Results RESPIRATORY 4 PLEX COVID FLU RSV PCR - Collect Date/Time: 04/08/2023 08:56 [facility] ID: [id number] [address] [place], [place], [id number] LOINC: 01005-9 Test Value Unit Reference Range Code Code System Flag SARS CoV2 PCR POSITIVE A FLU A PCR NEGATIVE FLU B PCR NEGATIVE RSV PCR NEGATIVE SEND TO IF? YES A CHEST 2V - Completed: 2023 09:19 LOINC: EXAM DESCRIPTION: CHEST 2V REASON FOR STUDY: short of breath/ recent COVID/ hx of bronchitis/CAD/ 2 stents Duration: since yesterday Smoking History: TECHNIQUE: Frontal and lateral radiographic view(s) of the chest. COMPARISON: 02/26/2023. FINDINGS: LUNGS: Bilateral perihilar peribronchial thickening. No focal consolidation. No pleural effusion or pneumothorax. HEART/MEDIASTINUM: Cardiac silhouette normal in size. Mediastinal and hilar contours appear normal. LINES/TUBES: None. BONES: No acute osseous abnormality. IMPRESSION: Bilateral perihilar peribronchial thickening suggestive of bronchitis. Clinical correlation, 6 week follow-up recommended. THIS IS AN ELECTRONICALLY VERIFIED FINAL REPORT 04/08/2023 9:21 AM - Electronically signed by Mayur Dallas M.D. CH: ADELFO Report ID: [id number] Reading Location: [place] [address] Social History Type Status Start Date End Date Code Code Syst em Smoking History Current every day smoker [id number] SNOMED CT Smoking History Never smoker (Never Smoked) [id number] SNOMED CT Sex Female Medications Medication Start Date End Date Route Frequency Dose Code Code System Medication Instructions Home Meds DAPTOmycin 500MG Intravenous Powder for Solution 03/24/2022 Unknown IVPB EVERY 24 HOURS 500 MILLIGRAMS 231696 RxNorm 500 MILLIGRAMS IVPB EVERY 24 HOURS Ferrous Sulfate 325 MG Oral Tablet, Enteric Coated 03/24/2022 Unknown ORAL TWICE A DAY 325 MILLIGRAMS 385025 RxNorm TAKE 325 MILLIGRAMS ORAL TWICE A DAY [employer] Nicotine Transdermal System 14MG/24HR Transdermal Patch, Extended Release 03/24/2022 Unknown TRANSDE RMAL 1200 14 MILLIGRAMS [id number] RxNorm APPLY TO 14 MILLIGRAMS TRANSDERMAL 1200 levoFLOXacin in 5% Dextrose 5%-500MG/100ML Intravenous Solution 03/24/2022 Unknown IVPB EVERY 24 HOURS 500 MILLIGRAMS 5722856 RxNorm 500 MILLIGRAMS IVPB EVERY 24 HOURS Aspirin 81MG Oral Tablet, Enteric Coated 03/24/2022 Unknown ORAL ONCE A DAY 81 MILLIGRAMS 491064 RxNorm TAKE 81 MILLIGRAMS ORAL ONCE A DAY Atorvastatin Calcium 80MG Oral Tablet 03/24/2022 Unknown ORAL ONCE A DAY 80 MILLIGRAMS 118953 RxNorm TAKE 80 MILLIGRAMS ORAL ONCE A DAY Carvedilol 12.5MG Oral Tablet 03/24/2022 Unknown ORAL TWICE A DAY 12.5 MILLIGRAMS 316075 RxNorm TAKE 12.5 MILLIGRAMS ORAL TWICE A DAY Clopidogrel 75MG Oral Tablet 03/24/2022 Unknown BY MOUTH 1 TABLET 829799 RxNorm TAKE 1 TABLET BY MOUTH - WAIT UNTIL PCP allows to restart! FLUoxetine 40MG Oral Capsule 03/24/2022 Unknown ORAL ONCE A DAY 40 MILLIGRAMS 362097 RxNorm TAKE 40 MILLIGRAMS ORAL ONCE A DAY HumaLOG KwikPen 100U/1ML Subcutaneous Solution 03/24/2022 Unknown SUBCUTA NEOUS BEFORE MEALS AND AT BEDTIME 1 unit(s) [id number] RxNorm INJECT INTO 1 EACH SUBCUTANEOUS BEFORE MEALS AND AT BEDTIME Lantus SoloStar Pen 100U/1ML Subcutaneous Solution 03/24/2022 Unknown SUBCUTA NEOUS TWICE A DAY 17 unit(s) 873455 RxNorm INJECT INTO 17 EACH SUBCUTANEOUS TWICE A DAY Nitroglycerin 0.4MG Sublingual Tablet 03/24/2022 Unknown SUBLING UAL PRN Q5MIN 0.[address] 0.4 MILLIGRAMS SUBLINGUAL PRN Q5MIN HYDROcodone bitartrate-felipa taminophen 5MG-325MG Oral Tablet 03/24/2022 Unknown BY MOUTH NEEDED EVERY 6 HOURS 1 TABLET 604247 RxNorm TAKE 1 TABLET BY MOUTH NEEDED [...] Date Status Code Code System PYELONEPHRITIS active [id number] SNOME D-CT Allergies and Adverse Reactions Allergy Substance Reaction Severity Start Date Concern Status Co de Code System TRAMADOL Rash (SNOMED-CT: [id number]) Active 65573 RxNorm Plan of Treatment No Data Found Encounters Encounter Diagnosis Start Date Code Code Sys tem Acute bronchitis, unspecified 04/08/2023 SNOMED-CT Personal Care Team Section Performer Name Performer Role Active Date Inactive ALICIA Oropeza PCP - Primary care physician 2023-01-28 Imaging Narrative Notes
--- OUTSIDE RECORDS SUMMARY | 2025-03-12 13:54 | XMS_ITS ---
Author Organization Unknown Address [address] [place] [phone] Phone Care Team Providers Care Tapper Balance Wheel Screw Hole Name Role Phone TORY WILEY Attending Unavailable LENNOX BURROUGHS Primary Unavailable Immunization Immunization Date Status Additional [...] CVX Tdap 05/26/2014 Completed 115 CVX Results TEST URINE - Colle ct Date/Time: 01/14/2023 20:07 [facility] ID: [id number] [place] [address], [id number] LOINC: Test Value Unit Reference Range Code Code System Flag URINE PREG NEGATIVE URINALYSIS w/Microscopy/C&S if indicated - Collect Date/Time: 01/14/2023 20:07 [facility] ID: [id number] [place], [place], [id number] LOINC: 93381-3 Test Value Unit Reference Range Code Code System Flag UR SOURCE UNKNOWN 57866-8 LOINC COLOR YELLOW YELLOW 5778-6 LOINC CLARITY CLEAR CLEAR 03042-1 LOINC SPEC GRAVITY 1.025 1.000-1.030 5811-5 LOINC PH 6.5 5.0 - 6.5 5803-2 LOINC LEUK EST NEGATIVE NEGATIVE 5799-2 LOINC NITRATE NEGATIVE NEGATIVE PROTEIN NEGATIVE NEGATIVE 5804-0 LOINC GLUCOSE NEGATIVE NEGATIVE 16304-4 LOINC KETONES TRACE NEGATIVE 70126-6 LOINC A UROBILINOGEN 0.2 NEGATIVE 5818-0 LOINC BILIRUBIN NEGATIVE NEGATIVE 63647-8 LOINC BLOOD NEGATIVE NEGATIVE 43235-6 LOINC WBC 0-2 0 - 2 55574-6 LOINC RBC 0-2 0 - 2 02634-6 LOINC EPITHELIAL FEW RARE-FEW 17171-2 LOINC BACTERIA FEW NONE SEEN 68689-6 LOINC MUCUS FEW NONE SEEN 8247-9 LOINC YEAST NOT PRESENT NOT PRESENT 89126-2 LOINC CASTS NONE SEEN 65852-3 LOINC CRYSTALS NONE SEEN 85016-8 LOINC CULTURE? NO 8251-1 LOINC DIAGNOSIS N/A CBC W/ DIFF - Collect Date/T timothy: 01/14/2023 20:05 [facility] ID: [id number] [place], [place], [id number] LOINC: 45482-4 Test Value Unit Reference Range Code Code System Flag WBC 11.8 10^3uL L=4.8 H=10.8 H RBC 3.97 10^6uL L=4.20 H=5.40 L HEMOGLOBIN 10.6 g/dL L=12.0 H=16.0 718-7 LOINC L HEMATOCRIT 34.6 VOL% L=37.0 H=47.0 4544-3 LOINC L MCV 87.2 fL L=81.0 H=99.0 MCH 26.7 pg L=27.0 H=32.0 L MCHC 30.6 g/dL L=32.0 H=36.0 L PLATELETS 261 10^3uL L=100 H=400 57786-8 LOINC RDW 14.9 % L=11.7 H=15.5 %GRAN 87.5 % L=40.0 H=70.0 67847-4 LOINC H %LYMPH 6.4 % L=20.0 H=45.0 736-9 LOINC L %MONO 4.1 % L=2.0 H=10.0 46991-6 LOINC %EOS 1.4 % L=0.0 H=6.0 713-8 LOINC %BASO 0.3 % L=0.0 H=3.0 706-2 LOINC #NEUT 10.3 10^3uL L=1.9 H=7.6 29183-9 LOINC H #LYMPH 0.8 10^3uL L=0.9 H=4.9 77791-6 LOINC L #MONO 0.5 10^3uL L=0.1 H=0.9 58694-8 LOINC #EOS 0.2 10^3uL L=0.0 H=0.6 712-0 LOINC #BASO 0.03 10^3uL L=0.00 H=0.10 27611-9 LOINC #IM GRANS 0.0 10^3uL L=0.0 H=7.0 34713-8 LOINC %IM GRANS 0.3 % L=0.0 H=5.0 58212-3 LOINC %NRB 0.0 L=0.0 H=0.2 50701-4 LOINC #NRB 0.000 L=0.000 H=0.012 87802-1 LOINC MANUAL DIFF NOT INDICATED RBC MORPH NOT INDICATED COMPREHENSIVE METABOLIC PANE L - Collect Date/Time: 01/14/2023 20:05 [facility] ID: [id number] [address] [place], [place], [phone] LOINC: 99638-4 Test Value Unit Reference Range Code Code System Flag FASTING UNKNOWN BUN 17 mg/dL L=7 H=20 3094-0 LOINC CREATININE 0.50 mg/dL L=0.52 H=1.04 2160-0 LOINC L GLUCOSE 123 mg/dL L=74 H=106 2345-7 LOINC H SODIUM 138 mmol/L L=132 H=144 2951-2 LOINC POTASSIUM 3.5 mmol/L L=3.5 H=5.1 2823-3 LOINC CHLORIDE 106 mmol/L L=98 H=107 2075-0 LOINC CO2 25.0 mmol/L L=22.0 H=30.0 2028-9 LOINC ANION GAP 11 L=10 H=20 50907-1 LOINC OSMOLALITY 289 mOs/kG L=280 H=296 25164-7 LOINC BUN/CREAT 34.0 3097-3 LOINC CALCIUM 8.4 mg/dL L=8.3 H=10.5 51601-9 LOINC AST 16 U/L L=15 H=46 1920-8 LOINC ALT 17 U/L L=9 H=72 1742-6 LOINC ALKALINE PHOS 71 U/L L=38 H=126 6768-6 LOINC TOTAL BILI 0.6 mg/dL L=0.2 H=1.3 1975-2 LOINC ALBUMIN 4.0 G/dL L=3.5 H=5.0 1751-7 LOINC TOTAL PROTEIN 7.0 g/L L=6.3 H=8.2 2885-2 LOINC A/G RATIO 1.3 06806-7 LOINC AGE 37 96671-7 LOINC eGFR NON-AFR 146 ml/min eGFR AFR AMER 177 ml/min LIPASE - Collect Date/Time: 01/14/2023 20:05 [facility] ID: [id number] [address] [place], [place], [id number] LOINC: 3040-3 Test Value Unit Reference Range Code Code System Flag LIPASE 48 U/L L=23 H=300 3040-[address] ABD/PEL W/ CONTRAST - Com pleted: 01/14/2023 20:51 LOINC: 17084-4 EXAM DESCRIPTION: CT ABD/PEL W/ CONTRAST REASON FOR STUDY: Right groin pain for 2 days that radiates up into RLQ and into flank with fever, nausea and vomiting. Patient states she had diarrhea yesterday. Also states that when she bends over, she feels like she's going to pass out. History of diabetes, CAD, coronary stent, [place]. History of tubal ligation. Duration: 2 days Previous Surgery: coronary stent and tubal ligation TECHNIQUE: CT scan of the abdomen and pelvis performed with intravenous and without oral contrast using helical scanning technique with dynamic intravenous contrast injection. Reconstructed coronal and sagittal MPR images reviewed. All images stored on PACS. Automated exposure control was used as a dose optimization technique for this examination. CONTRAST TYPE/DOSE: 100 cc of Isovue 370 injected via Left AC COMPARISON: CT and pelvis dated 04/24/2022. REFERENCE: Per ACR white paper recommendations, unless otherwise specified no follow-up imaging is recommended for incidental renal and adrenal lesions per consensus recommendations based on imaging criteria. Further lab evaluation could be pursued based on clinical findings. FINDINGS: LOWER CHEST: No significant pulmonary abnormalities. No effusion. LIVER: Enlarged. No focal lesion identified. GALLBLADDER: Unremarkable. BILE DUCTS: No intrahepatic or extrahepatic ductal dilatation. SPLEEN: Normal size. No focal lesions. PANCREAS: No identified cystic or solid masses. No significant calcifications. No adjacent inflammation or peripancreatic fluid collections. Pancreatic duct not dilated. ADRENALS: Normal. KIDNEYS/URINARY TRACT: Peripheral wedge-shaped hypodensities seen on prior exam have resolved in the interval. There is a 6 mm calculus at the interpolar region of the left kidney, stable compared to prior exam. No hydronephrosis or ureterolithiasis is identified. Urinary bladder is unremarkable. GI: There are multiple diverticula within the large bowel without adjacent inflammation to suggest diverticulitis. Appendix is unremarkable. Small bowel is within normal limits. PERITONEUM: No ascites or free air. RETROPERITONEUM: No mass or adenopathy. REPRODUCTIVE: No significant abnormality. VASCULATURE: No abdominal aortic aneurysm. MUSCULOSKELETAL: No significant abnormality. OTHER: No other abnormality. IMPRESSION: 1. No evidence of acute intra-abdominal or intrapelvic abnormality. 2. Nonobstructive nephrolithiasis on left. 3. Colonic diverticulosis. THIS IS AN ELECTRONICALLY VERIFIED FINAL REPORT 01/14/2023 9:41 PM - Electronically signed by Jabari Arias M.D., Darline Arias M.D. D.ORich MW: MAYI Report ID: [id number] Reading Location: [id number] Social History Type Status Start Date End Date Code Code Syst em Smoking History Current every day smoker 722735803 SNOMED CT Smoking History Never smoker (Never Smoked) 049486725 SNOMED CT Sex Female Medications Medication Start Date End Date Route Frequency Dose Code Code System Medication Instructions Home Meds DAPTOmycin 500MG Intravenous Powder for Solution 03/24/2022 Unknown IVPB EVERY 24 HOURS 500 MILLIGRAMS 996127 RxNorm 500 MILLIGRAMS IVPB EVERY 24 HOURS Ferrous Sulfate 325 MG Oral Tablet, Enteric Coated 03/24/2022 Unknown ORAL TWICE A DAY 325 MILLIGRAMS 928123 RxNorm TAKE 325 MILLIGRAMS ORAL TWICE A DAY [employer] Nicotine Transdermal System 14MG/24HR Transdermal Patch, Extended Release 03/24/2022 Unknown TRANSDE RMAL 1200 14 MILLIGRAMS 757514 RxNorm APPLY TO 14 MILLIGRAMS TRANSDERMAL 1200 levoFLOXacin in 5% Dextrose 5%-500MG/100ML Intravenous Solution 03/24/2022 Unknown IVPB EVERY 24 HOURS 500 MILLIGRAMS 1165658 RxNorm 500 MILLIGRAMS IVPB EVERY 24 HOURS Aspirin 81MG Oral Tablet, Enteric Coated 03/24/2022 Unknown ORAL ONCE A DAY 81 MILLIGRAMS 315889 RxNorm TAKE 81 MILLIGRAMS ORAL ONCE A DAY Atorvastatin Calcium 80MG Oral Tablet 03/24/2022 Unknown ORAL ONCE A DAY 80 MILLIGRAMS 635888 RxNorm TAKE 80 MILLIGRAMS ORAL ONCE A DAY Carvedilol 12.5MG Oral Tablet 03/24/2022 Unknown ORAL TWICE A DAY 12.5 MILLIGRAMS 956636 RxNorm TAKE 12.5 MILLIGRAMS ORAL TWICE A DAY Clopidogrel 75MG Oral Tablet 03/24/2022 Unknown BY MOUTH 1 TABLET 725975 RxNorm TAKE 1 TABLET BY MOUTH - WAIT UNTIL PCP allows to restart! FLUoxetine 40MG Oral Capsule 03/24/2022 Unknown ORAL ONCE A DAY 40 MILLIGRAMS 793926 RxNorm TAKE 40 MILLIGRAMS ORAL ONCE A DAY HumaLOG KwikPen 100U/1ML Subcutaneous Solution 03/24/2022 Unknown SUBCUTA NEOUS BEFORE MEALS AND AT BEDTIME 1 unit(s) 3741263 RxNorm INJECT INTO 1 EACH SUBCUTANEOUS BEFORE MEALS AND AT BEDTIME Lantus SoloStar Pen 100U/1ML Subcutaneous Solution 03/24/2022 Unknown SUBCUTA NEOUS TWICE A DAY 17 unit(s) 161581 RxNorm INJECT INTO 17 EACH SUBCUTANEOUS TWICE A DAY Nitroglycerin 0.4MG Sublingual Tablet 03/24/2022 Unknown SUBLING UAL PRN Q5MIN 0.[address] 0.4 MILLIGRAMS SUBLINGUAL PRN Q5MIN HYDROcodone bitartrate-felipa taminophen 5MG-325MG Oral Tablet 03/24/2022 Unknown BY MOUTH NEEDED EVERY 6 HOURS 1 TABLET 014210 RxNorm TAKE 1 TABLET BY MOUTH NEEDED [...] Date Status Code Code System PYELONEPHRITIS active 33621705 SNSan[facility] Sunglass D-CT Allergies and Adverse Reactions Allergy Substance Reaction Severity Start Date Concern Status Co de Code System TRAMADOL Rash (SNOMED-CT: 472152615) Active 54391 RxNorm Plan of Treatment No Data Found Encounters Encounter Diagnosis Start Date Code Code Sys tem Infectious gastroenteritis and colitis, unspecified SNOMED-CT Personal Care Team Section Performer Name Performer Role Active Date Inactive ALICIA Oropeza PCP - Primary care physician 2023-01-28 Imaging Narrative Notes
--- OUTSIDE RECORDS SUMMARY | 2025-03-12 13:54 | XMS_ITS | Encounter Summary ---
Author Organization [facility] Address [address] [place] [address] Care Team Providers Care Social Work Supervisor Name Role Phone None, Provider Primary Care Provider Austin De Leon MD Primary Care Provider [phone] Jennifer Gordon MD Unavailable UnavailFreddy Yee MD Primary Care Provider [phone] Encounter Details Date Type Department Care Team (Late st Contact Info) Description 08/27/2018 Abstract SFL CONVERSION [address] [place] [id number] , Generic Conversion, Social History Tobacco Use Types Packs/Day Years Used Date Smoking Tobacco: Never Assessed Comments Unknown Sex and Gender Information Value Date Recorded Sex Assigned at Female 12/06/2023 7:53 AM CDT Legal Sex Female 9:48 PM CDT Gender Identity Female 12/06/2023 7:53 AM CDT Sexual Orientation Straight 12/06/2023 7: 53 AM CDT documented as of this encounter Plan of Treatment Not on file documented as of this encounter Visit Diagnoses Not on filedocumented in this encounter Additional Health Concerns Infection Onset Date Last Indicated Resolved Time COVID-19 Rule Out 02/09/2020 02/09/2020 02/09/2020 9:30 PM DEALERSHIP MANAGER COVID-19 Rule Out 06/09/2020 06/09/2020 06/09/2020 8:44 AM CDT COVID-19 Rule Out 10/26/2020 10/26/2020 10/26/2020 4:38 PM CDT COVID-19 Rule Out 12/06/2023 12/06/2023 12/06/2023 5:32 AM CDT Respiratory Rule Out 05/18/2024 05/18/2024 025 12:38 PM DEALERSHIP MANAGER COVID-19 Rule Out 05/18/2024 05/18/2024 05/18/2024 12:38 PM DEALERSHIP MANAGER Influenza - Seasonal 05/18/2024 05/18/2024 025 12:32 AM DEALERSHIP MANAGER COVID-19 Rule Out 05/23/2024 05/23/2024 05/23/2024 6:27 PM DEALERSHIP MANAGER documented as of this encounter Care Teams Social Work Supervisor Relationship Specialty Start Date End Date None, Provider, PCP - General 02/09/20 02/12/20 Austin Cerna MD PCP - General FAMILY PRACTICE 02/13/20 01/24/21 Freddy Gray MD [address] [place] [phone] PCP - General FAMILY PRACTICE 01/25/21 Jennifer Gordon MD Consulting Physician CARDIOVASCULAR DISEASE 02/19/20 documented as of this encounter
--- OUTSIDE RECORDS SUMMARY | 2025-03-12 13:54 | XMS_ITS ---
Author Organization Unknown Address [address] [place] [phone] Phone Care Team Providers Care Sheet Rock Hanger Name Role Phone ANT Steen Attending Unavailable LENNOX BURROUGHS Primary Unavailable Immunization [...] Results TEST URINE - Colle ct Date/Time: 01/18/2023 14:43 [facility] ID: [id number] [address] [place], [place], [phone] LOINC: Test Value Unit Reference Range Code Code System Flag URINE PREG NEGATIVE URINALYSIS w/Microscopy/C&S if indicated - Collect Date/Time: 01/18/2023 14:43 [facility] ID: [id number] [address] [place], [place], [id number] LOINC: 93100-7 Test Value Unit Reference Range Code Code System Flag UR SOURCE UNKNOWN 28550-0 LOINC COLOR YELLOW YELLOW 5778-6 LOINC CLARITY SL CLOUDY CLEAR 37239-6 LOINC SPEC GRAVITY 1.020 1.000-1.030 5811-5 LOINC PH 7.0 5.0 - 6.5 5803-2 LOINC LEUK EST NEGATIVE NEGATIVE 5799-2 LOINC NITRATE NEGATIVE NEGATIVE PROTEIN NEGATIVE NEGATIVE 5804-0 LOINC GLUCOSE NEGATIVE NEGATIVE 61856-6 LOINC KETONES NEGATIVE NEGATIVE 48077-3 LOINC UROBILINOGEN 4.0 NEGATIVE 5818-0 LOINC BILIRUBIN NEGATIVE NEGATIVE 23478-7 LOINC BLOOD NEGATIVE NEGATIVE 77919-4 LOINC WBC 0-2 0 - 2 95993-6 LOINC RBC 0-2 0 - 2 82464-0 LOINC EPITHELIAL MODERATE RARE-FEW 82735-8 LOINC A BACTERIA 1+ NONE SEEN 75411-5 LOINC MUCUS 1+ NONE SEEN 8247-9 LOINC YEAST NOT PRESENT NOT PRESENT 91633-8 LOINC CASTS NONE SEEN 21128-4 LOINC CRYSTALS NONE SEEN 05036-2 LOINC CULTURE? NO 8251-1 LOINC DIAGNOSIS N/A CBC W/ DIFF - Collect Date/T timothy: 01/18/2023 14:37 [facility] ID: [id number] [place], [place], [phone] LOINC: 99777-8 Test Value Unit Reference Range Code Code System Flag WBC 7.0 10^3uL L=4.8 H=10.8 RBC 4.02 10^6uL L=4.20 H=5.40 L HEMOGLOBIN 10.9 g/dL L=12.0 H=16.0 718-7 LOINC L HEMATOCRIT 34.9 VOL% L=37.0 H=47.0 4544-3 LOINC L MCV 86.8 fL L=81.0 H=99.0 MCH 27.1 pg L=27.0 H=32.0 MCHC 31.2 g/dL L=32.0 H=36.0 L PLATELETS 250 10^3uL L=100 H=400 27242-2 LOINC RDW 14.6 % L=11.7 H=15.5 %GRAN 66.4 % L=40.0 H=70.0 24197-8 LOINC %LYMPH 23.1 % L=20.0 H=45.0 736-9 LOINC %MONO 8.0 % L=2.0 H=10.0 94765-5 LOINC %EOS 2.1 % L=0.0 H=6.0 713-8 LOINC %BASO 0.3 % L=0.0 H=3.0 706-2 LOINC #NEUT 4.6 10^3uL L=1.9 H=7.6 00950-0 LOINC #LYMPH 1.6 10^3uL L=0.9 H=4.9 01188-8 LOINC #MONO 0.6 10^3uL L=0.1 H=0.9 55042-0 LOINC #EOS 0.2 10^3uL L=0.0 H=0.6 712-0 LOINC #BASO 0.02 10^3uL L=0.00 H=0.10 22403-6 LOINC #IM GRANS 0.0 10^3uL L=0.0 H=7.0 73324-5 LOINC %IM GRANS 0.1 % L=0.0 H=5.0 54570-2 LOINC %NRB 0.0 L=0.0 H=0.2 46951-1 LOINC #NRB 0.000 L=0.000 H=0.012 80821-0 LOINC MANUAL DIFF NOT INDICATED RBC MORPH NOT INDICATED COMPREHENSIVE METABOLIC PANE L - Collect Date/Time: 01/18/2023 14:37 [facility] ID: [id number] [address] [place], [place], [id number] LOINC: 65907-1 Test Value Unit Reference Range Code Code System Flag FASTING UNKNOWN BUN 9 mg/dL L=7 H=20 3094-0 LOINC CREATININE 0.50 mg/dL L=0.52 H=1.04 2160-0 LOINC L GLUCOSE 152 mg/dL L=74 H=106 2345-7 LOINC H SODIUM 138 mmol/L L=132 H=144 2951-2 LOINC POTASSIUM 3.5 mmol/L L=3.5 H=5.1 2823-3 LOINC CHLORIDE 104 mmol/L L=98 H=107 2075-0 LOINC CO2 29.0 mmol/L L=22.0 H=30.0 2028-9 LOINC ANION GAP 9 L=10 H=20 78557-5 LOINC L OSMOLALITY 288 mOs/kG L=280 H=296 63178-3 LOINC BUN/CREAT 18.0 3097-3 LOINC CALCIUM 7.9 mg/dL L=8.3 H=10.5 90580-8 LOINC L AST 24 U/L L=15 H=46 1920-8 LOINC ALT 24 U/L L=9 H=72 1742-6 LOINC ALKALINE PHOS 60 U/L L=38 H=126 6768-6 LOINC TOTAL BILI 0.2 mg/dL L=0.2 H=1.3 1975-2 LOINC ALBUMIN 3.9 G/dL L=3.5 H=5.0 1751-7 LOINC TOTAL PROTEIN 6.8 g/L L=6.3 H=8.2 2885-2 LOINC A/G RATIO 1.3 01153-3 LOINC AGE 37 64365-7 LOINC eGFR NON-AFR 146 ml/min eGFR AFR AMER 177 ml/min TROPONIN LEVEL - Collect Mario Alberto e/Time: 01/18/2023 14:37 [facility] ID: [id number] [address] [place], [place], [id number] LOINC: 64856-8 Test Value Unit Reference Range Code Code System Flag TROPONIN 0.012 ng/mL L=0.000 H=0.033 99558-3 LOINC STOOL OCCULT BLOOD 1-3 CARDS - Collect Date/Time: 01/18/2023 14:30 [facility] ID: [id number] [address] [place], [place], [id number] LOINC: Test Value Unit Reference Range Code Code System Flag OCCULT BLOOD 1 NEGATIVE 5778-6 LOINC OCCULT BLOOD 2 N/A 5778-6 LOINC OCCULT BLOOD 3 N/A 5778-6 LOINC ABDOMEN 2V - Completed: 12/22 16:28 LOINC: EXAM DESCRIPTION: ABDOMEN 2V REASON FOR STUDY: dark stools and feeling of bloating Duration: 3 days TECHNIQUE: KUB radiographic views of the abdomen. COMPARISON: CT abdomen pelvis comparison 01/14/2023. FINDINGS: FREE AIR: None. BOWEL: Scattered mild gas distention of small bowel loops with formed stool distributed throughout the colon. Overall, nonspecific bowel gas pattern. No definite findings to indicate obstruction. SOFT TISSUES: Vascular calcifications. LINES/TUBES: None. BONES: Partial sacralization of L5 on the right. IMPRESSION: Nonspecific bowel gas pattern. No definite findings to indicate obstruction. If indicated clinically, CT may be beneficial. No free air. THIS IS AN ELECTRONICALLY VERIFIED FINAL REPORT 01/18/2023 4:39 PM - Electronically signed by Keon Friedman M.D. LC: ANTHONY Report ID: [id number] Reading Location: [place] [address] Social History Type Status Start Date End Date Code Code Syst em Smoking History Current every day smoker 341246295 [facility] Smoking History Never smoker (Never Smoked) 990315206 [facility] Sex Female Medications Medication Start Date End Date Route Frequency Dose Code Code System Medication Instructions Home Meds DAPTOmycin 500MG Intravenous Powder for Solution 03/24/2022 Unknown IVPB EVERY 24 HOURS 500 MILLIGRAMS 343239 RxNorm 500 MILLIGRAMS IVPB EVERY 24 HOURS Ferrous Sulfate 325 MG Oral Tablet, Enteric Coated 03/24/2022 Unknown ORAL TWICE A DAY 325 MILLIGRAMS 027180 RxNorm TAKE 325 MILLIGRAMS ORAL TWICE A DAY [employer] Nicotine Transdermal System 14MG/24HR Transdermal Patch, Extended Release 03/24/2022 Unknown TRANSDE RMAL 1200 14 MILLIGRAMS 19790430 RxNorm APPLY TO 14 MILLIGRAMS TRANSDERMAL 1200 levoFLOXacin in 5% Dextrose 5%-500MG/100ML Intravenous Solution 03/24/2022 Unknown IVPB EVERY 24 HOURS 500 MILLIGRAMS 5592685 RxNorm 500 MILLIGRAMS IVPB EVERY 24 HOURS Aspirin 81MG Oral Tablet, Enteric Coated 03/24/2022 Unknown ORAL ONCE A DAY 81 MILLIGRAMS 625125 RxNorm TAKE 81 MILLIGRAMS ORAL ONCE A DAY Atorvastatin Calcium 80MG Oral Tablet 03/24/2022 Unknown ORAL ONCE A DAY 80 MILLIGRAMS 481263 RxNorm TAKE 80 MILLIGRAMS ORAL ONCE A DAY Carvedilol 12.5MG Oral Tablet 03/24/2022 Unknown ORAL TWICE A DAY 12.5 MILLIGRAMS 148711 RxNorm TAKE 12.5 MILLIGRAMS ORAL TWICE A DAY Clopidogrel 75MG Oral Tablet 03/24/2022 Unknown BY MOUTH 1 TABLET 827062 RxNorm TAKE 1 TABLET BY MOUTH - WAIT UNTIL PCP allows to restart! FLUoxetine 40MG Oral Capsule 03/24/2022 Unknown ORAL ONCE A DAY 40 MILLIGRAMS 832951 RxNorm TAKE 40 MILLIGRAMS ORAL ONCE A DAY HumaLOG KwikPen 100U/1ML Subcutaneous Solution 03/24/2022 Unknown SUBCUTA NEOUS BEFORE MEALS AND AT BEDTIME 1 unit(s) 9520940 RxNorm INJECT INTO 1 EACH SUBCUTANEOUS BEFORE MEALS AND AT BEDTIME Lantus SoloStar Pen 100U/1ML Subcutaneous Solution 03/24/2022 Unknown SUBCUTA NEOUS TWICE A DAY 17 unit(s) 588148 RxNorm INJECT INTO 17 EACH SUBCUTANEOUS TWICE A DAY Nitroglycerin 0.4MG Sublingual Tablet 03/24/2022 Unknown SUBLING UAL PRN Q5MIN 0.[address] 0.4 MILLIGRAMS SUBLINGUAL PRN Q5MIN HYDROcodone bitartrate-felipa taminophen 5MG-325MG Oral Tablet 03/24/2022 Unknown BY MOUTH NEEDED EVERY 6 HOURS 1 TABLET 467002 RxNorm TAKE 1 TABLET BY MOUTH NEEDED [...] Date Status Code Code System PYELONEPHRITIS active 58286688 SNOME D-CT Allergies and Adverse Reactions Allergy Substance Reaction Severity Start Date Concern Status Co de Code System TRAMADOL Rash (SNOMED-CT: 222927625) Active 67343 RxNorm Plan of Treatment No Data Found Encounters Encounter Diagnosis Start Date Code Code Sys tem Acute gastritis without bleeding 01/18/2023 SNOMED-CT Personal Care Team Section Performer Name Performer Role Active Date Inactive ALICIA Oropeza PCP - Primary care physician 2023-01-28 Imaging Narrative Notes
--- OUTSIDE RECORDS SUMMARY | 2025-03-12 13:54 | XMS_ITS | Encounter Summary ---
Author Organization [facility] Address [address] [place] [address] Care Team Providers Care Subassembly Supervisor Name Role Phone Austin Cerna MD Primary Care Provider [phone] Jennifer Gordon MD [facility] Freddy Irving MD Primary Care Provider [phone] Encounter Details Date Type Department Care Team (Late st Contact Info) Description 02/13/2020 Hospital Follow-up Call [facility] [address] [place], [place] [address] Shannon Gonsalves RN . Social History Tobacco Use Types Packs/Day Years Used Date Smoking Tobacco: Heavy Smoker Cigarettes Smokeless Tobacco: Never Comments No Sex and Gender Information Value [...] or suspected to have Coronavirus / COVID-19? Yes 02/09/2020 9:41 AM STAVE INSPECTOR documented as of this encounter Functional Status * RETIRED Are you deaf or do you have serious difficulty hearing Answer Date of Assessment Author Status No 02/09/2020 6:12 PM STAVE INSPECTOR Activ e * RETIRED Are you blind or do you have serious difficulty seeing, even when wearing glasses? Answer Date of Assessment Author Status No 02/09/2020 6:11 PM STAVE INSPECTOR Activ e * Do you have serious difficulty walking or climbing stairs? Answer Date of Assessment Author Status No 02/09/2020 6:11 PM Raquel Decker RN Active * Do you have difficulty dressing or bathing? Answer Date of Assessment Author Status No 02/09/2020 6:11 PM Raquel Decker RN Active * Because of a physical, mental, or emotional condition, do you have difficulty doing errands alone such as visiting a doctor's office or shopping? Answer Date of Assessment Author Status No 02/09/2020 6:11 PM Raquel Decker RN Active documented as of this encounter Mental Status * Because of a physical, mental, or emotional condition, do you have serious difficulty concentrating, remembering, or making decisions? Answer Entry Date Author Status No 02/09/2020 6:11 PM Raquel Decker RN Active documented in this encounter Plan of Treatment Not on file documented as of this encounter Visit Diagnoses Not on filedocumented in this encounter Additional Health Concerns Infection Onset Date Last Indicated Resolved Time COVID-19 Rule Out 06/09/2020 06/09/2020 06/09/2020 8:44 AM CDT COVID-19 Rule Out 10/26/2020 10/26/2020 10/26/2020 4:38 PM CDT COVID-19 Rule Out 12/06/2023 12/06/2023 12/06/2023 5:32 AM CDT Respiratory Rule Out 05/18/2024 05/18/2024 025 12:38 PM STAVE INSPECTOR COVID-19 Rule Out 05/18/2024 05/18/2024 05/18/2024 12:38 PM STAVE INSPECTOR Influenza - Seasonal 05/18/2024 05/18/2024 025 12:32 AM STAVE INSPECTOR COVID-19 Rule Out 05/23/2024 05/23/2024 05/23/2024 6:27 PM STAVE INSPECTOR documented as of this encounter Care Teams Subassembly Supervisor Relationship Specialty Start Date End Date Austin Cerna MD PCP - General FAMILY PRACTICE 02/13/20 01/24/21 Freddy Gray MD [address] [place] [id number] PCP - General FAMILY PRACTICE 01/25/21 Jennifer Gordon MD Consulting Physician CARDIOVASCULAR DISEASE 02/19/20 documented as of this encounter
--- NOTE | 2025-03-15 15:12 | PC.NURSE ---
PRELIMINARY BLOOD CULTURE REPORT; NO GROWTH IN 24 HOURS.
--- NOTE | 2025-03-16 14:11 | PC.NURSE ---
Preliminary blood culture report; no growth in 48 hours.
--- NOTE | 2025-03-19 13:40 | PC.NURSE ---
blood final no growth
== END 2025-03-12 13:34 | disposition home or self-care (01) ==
PROVIDERS: Emergency Provider Emergency Medicine; PCP Physician Assistant
DX: U07.1 COVID-19 (principal); I25.10 Atherosclerotic heart disease of native coronary artery without angina pectoris
CPT/HCPCS: 36415; 71045; 80053; 83605; 83735; 83880; 84484; 85025; 85380; 85610; 85730; 87040; 87637; 93005; 96361; 96374; 99284; J1885; J7030